=== PATIENT | female | born 1950 ===

== ENCOUNTER → 2018-08-29 06:32 | Outpatient (CLI) | payer OTHER ==
[~2018-08-29 06:32] MED LIST: FLEXERIL; LYRICA100 MG; PLAQUENIL; RAYOS5 MG; SYNTHROID175 MCG; ULTRACET
== END | disposition home or self-care (01) ==
LOC: LAB 06:32
DX: R07.89 Other chest pain (principal); I10 Essential (primary) hypertension; D68.8 Other specified coagulation defects; E78.2 Mixed hyperlipidemia; N39.0 Urinary tract infection, site not specified